=== PATIENT | female | born 1960 | race Caucasian/White ===

== ENCOUNTER → 2020-11-19 13:10 | Outpatient (CLI) | payer OTHER, SELFPAY ==
--- NOTE | ~2020-11-19 | MM_ITS ---
EXAMINATION: MM screening rj BI w juan carlos HISTORY: Screening mammogram TECHNIQUE: Craniocaudal and mediolateral oblique 3-D tomosynthesis images were obtained and synthetic 2-D images were generated. CAD analysis was submitted and interpreted. COMPARISON: 11/18/2019, 11/14/2018, 11/13/2017, 11/08/2016, 08/07/2006 bilateral digital screening mammog roz examinations BREAST PARENCHYMAL COMPOSITION: There are scattered areas of fibroglandular density. FINDINGS: 8 mm circumscribed low-density opacity in the lower outer right breast is stable or diminis hed in size since 08/07/2006, consistent with chronic benign process. There is no evidence of suspici ous mass, calcification, or architectural distortion to suggest malignancy in either breast. There greenwood s been no suspicious interval change. IMPRESSION: 1. No mammographic evidence of malignancy. 2. Recommend routine screening mammography in one year. BI-RADS Category 2: Benign finding(s). Reviewed, dictated and finalized at location A. STICS CLERK
--- NOTE | ~2020-11-19 | DEXA_ITS ---
Bone Density Report Name: Kemi Bravo Age: 60 Sex: Female Ethnicity: White Date of : 1960 Indication: osteopenia; monitoring treatment; height loss; postmenopausal Referring Provider: KAMINI GUO Study: Bone densitometry was performed. Exam Date: November 19, 2020 Accession number: [id number] Bone Density: Region BMD T-score Z-score Classification AP Spine (L1-L4) 0.895 -1.4 0.1 Osteopenia Femoral Neck (Left) 0.771 -0.7 0.6 Normal Total Hip (Left) 0.987 0.4 1.4 Normal Femoral Neck (Right) 0.822 -0.2 1.1 Normal Total Hip (Right) 0.955 0.1 1.1 Normal Total Hip Mean 0.971 0.3 1.3 Normal World Health Organization criteria for BMD impression classify patients as: Normal (T-score at or above -1.0), Osteopenia (T-score between -1.0 and -2.5), or Osteoporosis (T-score at or below -2.5). 10-year Fracture Risk: FRAX not reported because: Treated for osteoporosis Previous Exams: Region Exam Age BMD T-score BMD Change BMD Change Date g/cm2 vs Baseline vs Previous AP Spine(L1-L4) 11/19/2020 60 0.895 -1.4 0.009 -0.002 11/14/2018 58 0.898 -1.4 0.011 0.026* 11/08/2016 56 0.871 -1.6 -0.015 -0.046* 08/28/2014 53 0.917 -1.2 0.031* 0.005 08/23/2011 50 0.912 -1.2 0.026* 0.026* 08/20/2009 48 0.886 -1.5 Total Hip(Left) 11/19/2020 60 0.987 0.4 0.030* 0.034* 11/14/2018 58 0.953 0.1 -0.004 0.000 11/08/2016 56 0.953 0.1 -0.004 -0.022 08/28/2014 53 0.975 0.3 0.018 0.054* 08/23/2011 50 0.921 -0.2 -0.036* -0.036* 08/20/2009 48 0.957 0.1 Total Hip(Right) 11/19/2020 60 0.955 0.1 0.045* 0.030* 11/14/2018 58 0.925 -0.1 0.015 0.006 11/08/2016 56 0.919 -0.2 0.009 -0.010 08/28/2014 53 0.929 -0.1 0.019 0.017 08/23/2011 50 0.912 -0.2 0.002 0.002 08/20/2009 48 0.910 -0.3 *Denotes significance at 95% confidence level, LSC for AP Spine = 0.022 g/cm2, LSC for Total Hip = 0.027 g/cm2 Clinical Information Provided by Patient: Is being treated for osteoporosis Has used the following medications: Actonel (i.e. risedronate), Vitamin D Patient maximum height was 66.0 Menopause Age: 48 Onset of menses at age 13 Number of children 0
== END ==
PROVIDERS: Visit Provider Obstetrics & Gynecology Gynecology
DX: Z12.31 Encounter for screening mammogram for malignant neoplasm of breast (principal); Z78.0 Asymptomatic menopausal state; M85.88 Other specified disorders of bone density and structure, other site
CPT/HCPCS: 77063; 77067; 77080

== ENCOUNTER → 2021-11-29 07:07 | Outpatient (CLI) | payer OTHER, SELFPAY ==
--- NOTE | ~2021-11-29 | MM_ITS ---
EXAMINATION: MM screening rj BI w juan carlos HISTORY: Screening TECHNIQUE: Craniocaudal and mediolateral oblique 3-D tomosynthesis images were obtained and synthetic 2-D images were generated. CAD analysis was submitted and interpreted. COMPARISON: Comparison to multiple prior studies sequentially, with oldest reviewed study dated 02/2015. BREAST PARENCHYMAL COMPOSITION: There are scattered areas of fibroglandular density. FINDINGS: There is developing architectural distortion superiorly in the right breast on MLO view, no t appreciated on CC view. There is a stable benign-appearing mass in the lower outer quadrant of the right breast. The left breast is stable without evidence for malignancy. IMPRESSION: 1. New architectural distortion superiorly in the right breast on MLO view. 2. Additional mammographic views and possible breast ultrasound are recommended. BI-RADS Category 0: Incomplete: Needs additional imaging evaluation. Reviewed, dictated and finalized at location A. NG CLOSER IMPRESSION: 1. New architectural distortion superiorly in the right breast on MLO view. 2. Additional mammographic views and possible breast ultrasound are recommended . BI-RADS Category 0: Incomplete: Needs additional imaging evaluation.
== END ==
PROVIDERS: Visit Provider Obstetrics & Gynecology Gynecology
DX: Z12.31 Encounter for screening mammogram for malignant neoplasm of breast (principal); R92.8 Other abnormal and inconclusive findings on diagnostic imaging of breast
CPT/HCPCS: 77063; 77067

== ENCOUNTER → 2021-12-15 07:58 | Outpatient (CLI) | payer OTHER, SELFPAY ==
--- NOTE | ~2021-12-15 | MMUS_ITS ---
EXAMINATION: MM diagnostic rj RT w juan carlos, US breast RT limited HISTORY: Follow-up possible architectural distortion of the right breast. TECHNIQUE: Additional 3-D tomosynthesis images of the right breast were performed and synthetic 2-D i mages were generated. CAD analysis was submitted and interpreted. High resolution Limited right breas t ultrasound was performed. COMPARISON: Comparison to multiple prior studies sequentially, with oldest reviewed study dated 11/08. BREAST PARENCHYMAL COMPOSITION: Breast composed of scattered areas of fibroglandular density. FINDINGS: MAMMOGRAPHIC FINDINGS: There is a stable benign-appearing mass in the lower outer quadrant of the right breast anteriorly. F ocal asymmetry in the upper aspect of the right breast is less apparent with spot compression views, compatible with superimposed fibroglandular content. No suspicious architectural distortion. ULTRASOUND: Limited right breast ultrasound: At 8-9:00, 3.5 cm from the nipple there is an oval circumscribed hyp oechoic mass measuring 9 mm corresponding to the stable benign mass seen on mammography. IMPRESSION: 1. No evidence for malignancy in the right breast. Benign findings. 2. Routine yearly screening mammogram and regular clinical breast examination are recommended. BI-RADS Category 2: Benign finding(s). Reviewed, dictated and finalized at location A. YTICS DEVELOPER IMPRESSION: 1. No evidence for malignancy in the right breast. Benign findings. 2. Routine yearly screening mammogram and regular clinical breast examination a re recommended. BI-RADS Category 2: Benign finding(s).
== END ==
PROVIDERS: Visit Provider Obstetrics & Gynecology Gynecology
DX: N63.15 Unspecified lump in the right breast, overlapping quadrants (principal)
CPT/HCPCS: 76642; 77061; 77065; G0279

== ENCOUNTER → 2022-12-01 12:09 | Outpatient (CLI) | payer OTHER, SELFPAY ==
--- NOTE | ~2022-12-01 | DEXA_ITS ---
Bone Density Report Name: SALLIE CHRISTINE Age: 62 Sex: Female Ethnicity: White Date of : 1960 Indication: osteopenia; height loss; prior fracture; postmenopausal Referring Provider: KAMINI GUO Study: Bone densitometry was performed. Exam Date: December 01, 2022 Accession number: [id number] Bone Density: Region BMD T-score Z-score Classification AP Spine (L1-L4) 0.886 -1.5 0.2 Osteopenia Femoral Neck (Left) 0.757 -0.8 0.6 Normal Total Hip (Left) 0.973 0.3 1.4 Normal Femoral Neck (Right) 0.778 -0.6 0.8 Normal Total Hip (Right) 0.938 0.0 1.1 Normal Total Hip Mean 0.956 0.2 1.3 Normal World Health Organization criteria for BMD impression classify patients as: Normal (T-score at or above -1.0), Osteopenia (T-score between -1.0 and -2.5), or Osteoporosis (T-score at or below -2.5). 10-year Fracture Risk(1): Major Osteoporotic Fracture 13% Hip Fracture 0.7% Reported Risk Factors: [place] (), Neck BMD=0.757, BMI=26.2, previous fracture (1) FRAX(R) Version 3.08. Fracture probability calculated for an untreated patient. Fracture probability may be lower if the patient has received treatment. Previous Exams: Region Exam Age BMD T-score BMD Change BMD Change Date g/cm2 vs Baseline vs Previous AP Spine(L1-L4) 12/01/2022 62 0.886 -1.5 0.000 -0.009 11/19/2020 60 0.895 -1.4 0.009 -0.002 11/14/2018 58 0.898 -1.4 0.011 0.026* 11/08/2016 56 0.871 -1.6 -0.015 -0.046* 08/28/2014 53 0.917 -1.2 0.031* 0.005 08/23/2011 50 0.912 -1.2 0.026* 0.026* 08/20/2009 48 0.886 -1.5 Total Hip(Left) 12/01/2022 62 0.973 0.3 0.016 -0.014 11/19/2020 60 0.987 0.4 0.030* 0.034* 11/14/2018 58 0.953 0.1 -0.004 0.000 11/08/2016 56 0.953 0.1 -0.004 -0.022 08/28/2014 53 0.975 0.3 0.018 0.054* 08/23/2011 50 0.921 -0.2 -0.036* -0.036* 08/20/2009 48 0.957 0.1 Total Hip(Right) 12/01/2022 62 0.938 0.0 0.028* -0.017 11/19/2020 60 0.955 0.1 0.045* 0.030* 11/14/2018 58 0.925 -0.1 0.015 0.006 11/08/2016 56 0.919 -0.2 0.009 -0.010 08/28/2014 53 0.929 -0.1 0.019 0.017 08/23/2011 50 0.912 -0.2 0.002 0.002 08/20/2009 48 0.910 -0.3 *Denotes si
--- NOTE | ~2022-12-01 | MM_ITS ---
EXAMINATION: MM screening [facility] BI w juan carlos HISTORY: Screening TECHNIQUE: Craniocaudal and mediolateral oblique 3-D tomosynthesis images were obtained and synthetic 2-D images were generated. CAD analysis was submitted and interpreted. COMPARISON: Comparison to multiple prior studies sequentially, with oldest reviewed study dated 11/13. BREAST PARENCHYMAL COMPOSITION: There are scattered areas of fibroglandular density. FINDINGS: Mass in the lower outer quadrant of the right breast is stable compared with prior studies. There is no evidence of suspicious mass, calcification, or architectural distortion to suggest malig luis m in either breast. There has been no suspicious interval change. IMPRESSION: 1. No mammographic evidence of malignancy. 2. Recommend routine screening mammography in one year. BI-RADS Category 2: Benign finding(s). Reviewed, dictated and finalized at location A. [employer] [facility] OPERATOR
== END ==
PROVIDERS: PCP Internal Medicine; Visit Provider Obstetrics & Gynecology Gynecology
DX: Z12.31 Encounter for screening mammogram for malignant neoplasm of breast (principal); Z78.0 Asymptomatic menopausal state; M85.88 Other specified disorders of bone density and structure, other site
CPT/HCPCS: 77063; 77067; 77080

== ENCOUNTER 2023-10-25 00:44 | Day surgery (SDC) | payer OTHER, SELFPAY ==
[2023-10-03 14:02] VITALS: BMI 25.0
--- NOTE | 2023-10-23 11:56 | SUR.PREOP ---
Patient called regarding upcoming procedure. Reviewed preop instructions, appointment times, and procedure prep.
--- NOTE | 2023-10-24 18:02 | PM.HPGS ---
History of Present Illness History of Present Illness Consent: Risks, benefits, and alternatives have been discussed and questions answered. Patient agrees to proceed with procedure. 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 Her mother had Rectal cancer. Review of Systems Review of Systems: All systems reviewed & are unremarkable except as noted in HPI and below PMFSH Social History Social History Smoking status: Never smoker Alcohol intake: current Alcohol use details: 1 drink monthly Substance use type: does not use Living arrangements: with family Spiritual care concerns: No Meds Home Medications and Allergies Home Medications Medication Instructions Recorded Confirmed Type ergocalciferol (vitamin D2) 1,250 1,250 mcg PO WEEKLY 10/03/23 10/25/23 History mcg (50,000 unit) capsule fexofenadine 180 mg tablet 180 mg PO DAILY 10/03/23 10/25/23 History fluticasone propionate 50 2 spray intranasal DAILY 10/03/23 10/25/23 History mcg/actuation nasal spray,suspension pravastatin 40 mg tablet 40 mg PO DAILY 10/03/23 10/25/23 History Allergies Allergy/AdvReac Type Severity Reaction Status Date / Time bee venom protein (honey bee) Allergy Rash Verified 10/25/23 06:24 hydrocodone Allergy Swelling Verified 10/25/23 06:24 Exam Resp: Auscultation: clear to auscultation bilaterally Cardio: Rate: regular rate Rhythm: regular rhythm GI: GI Palp: Yes Soft to palpation and No Tenderness to palpation present (GI) Assessment and Plan Assessment and plan (1) Colon cancer screening: Code(s): Z12.11 - Encounter for screening for malignant neoplasm of colon Status: Acute Assessment and Plan: Colonoscopy with possible biopsy or polypectomy or cautery or injection of substances.
[2023-10-25 06:25] VITALS: BP 154/82; PULSE 60; RESP 18; TEMP 36.1; O2SAT 99; BMI 27.3
[2023-10-25] MEDS: LACTATED RINGERS 1,000 ML 150 ML IV CONT (06:37)
--- NOTE | 2023-10-25 07:24 | P.PNAN_ITS ---
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 Patient Data Age: 63 Gender: F Height: 1.63 m Weight: 72.1 kg Last Vital Signs Temp 97.0 F L 10/25/23 06:25 Pulse 60 10/25/23 06:25 Resp 18 10/25/23 06:25 BP 154/82 H 10/25/23 06:25 Pulse Ox 99 10/25/23 06:25 O2 Del Method Room Air 10/25/23 06:25 Allergies Allergy/AdvReac Type Severity Reaction Status Date / Time bee venom protein (honey bee) Allergy Rash Verified 10/25/23 06:24 hydrocodone Allergy Swelling Verified 10/25/23 06:24 Home Medications Medication Instructions Recorded Confirmed Type ergocalciferol (vitamin D2) 1,250 1,250 mcg PO WEEKLY 10/03/23 10/25/23 History mcg (50,000 unit) capsule fexofenadine 180 mg tablet 180 mg PO DAILY 10/03/23 10/25/23 History fluticasone propionate 50 2 spray intranasal DAILY 10/03/23 10/25/23 History mcg/actuation nasal spray,suspension pravastatin 40 mg tablet 40 mg PO DAILY 10/03/23 10/25/23 History Patient hx anesthesia problems: none Family hx anesthesia problems: none Results Review: All pre-operative results and documents have been reviewed as part of the pre- operative evaluation. [facility] Social History Social History Smoking status: Never smoker Alcohol intake: current Alcohol use details: 1 drink monthly Substance use type: does not use Living arrangements: with family Spiritual care concerns: No Anes - Eval Final PreProcedure Day of Procedure 10/25/23 07:24 Patient weight: normal Heart: regular rate and rhythm Lungs: clear to auscultation Airway: Mallampati scale class II Neurological: alert and oriented Last oral intake: >/= 8 hours ASA classification: II Emergent: no Anesthetic plan: proceed Anesthesia type and monitoring: general GIVS and standard monitoring Results Review: All pre-operative results and documents have been reviewed as part of the pre- operative evaluation. Informed Consent: The patient's anesthetic plan and its attendant risks and benefits were discussed with the patient/family/POA. Questions were solicited and answers provided to the satisfaction of the patient/family/POA.
[2023-10-25 07:47] VITALS: BP 110/69; PULSE 66; RESP 20; O2SAT 94
[2023-10-25 07:57] VITALS: BP 111/69; PULSE 68; RESP 18; O2SAT 95
[2023-10-25 08:07] VITALS: BP 130/80; PULSE 60; RESP 18; O2SAT 98
== END 2023-10-25 08:09 | disposition home or self-care (01) ==
PROVIDERS: PCP Internal Medicine; Visit Provider Internal Medicine Gastroenterology
PROC: 0DJD8ZZ Inspection of Lower Intestinal Tract, Via Natural or Artificial Opening Endoscopic (ICD-10-PCS; CPT 45378; principal; 2023-10-25 07:30)
DX: Z12.11 Encounter for screening for malignant neoplasm of colon (principal); Z80.0 Family history of malignant neoplasm of digestive organs
CPT/HCPCS: 45378; J2704; J7120

== ENCOUNTER 2024-01-09 12:00 | Outpatient (CLI) | payer OTHER, SELFPAY ==
--- NOTE | ~2024-01-09 | MM_ITS ---
EXAMINATION: MM screening rj BI w juan carlos HISTORY: Screening mammogram TECHNIQUE: Craniocaudal and mediolateral oblique 3-D tomosynthesis images were obtained and synthetic 2-D images were generated. CAD analysis was submitted and interpreted. COMPARISON: December 01, 2022 bilateral screening mammogram December 15, 2021 diagnostic right mammogram and limited right breast ultrasound November 29, 2021, Ja nuary 2020 bilateral screening mammogram examinations BREAST PARENCHYMAL COMPOSITION: There are scattered areas of fibroglandular density. FINDINGS: Stable circumscribed approximately 7.7 mm mass is noted in the mid to lower outer right satya ast anteriorly, not completely change. There is no evidence of suspicious mass, calcification, or arc hitectural distortion to suggest malignancy in either breast. There has been no suspicious interval c hange. IMPRESSION: 1. Stable benign right breast mass. No mammographic evidence of malignancy. 2. Recommend routine screening mammography in one year. BI-RADS Category 2: Benign finding(s). Reviewed, dictated and finalized at location A.
== END 2024-01-09 12:01 ==
LOC: MICIMG 12:00
PROVIDERS: PCP Obstetrics & Gynecology Gynecology; Visit Provider Obstetrics & Gynecology Gynecology
DX: Z12.31 Encounter for screening mammogram for malignant neoplasm of breast (principal)
CPT/HCPCS: 77063; 77067

== ENCOUNTER 2025-01-07 12:10 | Outpatient (CLI) | payer MEDICARE, SELFPAY ==
--- NOTE | ~2025-01-07 | DEXA_ITS ---
Bone Density Report Name: SALLIE CHRISTINE Age: 64 Sex: Female Ethnicity: White Date of : 1960 Indication: postmenopausal; screening for osteoporosis; height loss; Referring Provider: KAMINI GUO Study: Bone densitometry was performed. Exam Date: January 07, 2025 Accession number: [id number] Bone Density: Region BMD T-score Z-score Classification AP Spine(L1-L4) 0.858 -1.7 0.1 Osteopenia Femoral Neck (Left) 0.693 -1.4 0.1 Osteopenia Total Hip (Left) 0.913 -0.2 1.0 Normal Femoral Neck (Right) 0.782 -0.6 0.9 Normal Total Hip (Right) 0.902 -0.3 0.9 Normal Total Hip Mean 0.908 -0.3 1.0 Normal World Health Organization criteria for BMD impression classify patients as: Normal (T-score at or above -1.0), Osteopenia (T-score between -1.0 and -2.5), or Osteoporosis (T-score at or below -2.5). 10-year Fracture Risk(1): Major Osteoporotic Fracture 8.6% Hip Fracture 0.9% Reported Risk Factors: [place] (), Neck BMD=0.693, BMI=27.6 (1) FRAX(R) Version 3.08. Fracture probability calculated for an untreated patient. Fracture probability may be lower if the patient has received treatment. Clinical Information Provided by Patient: Patient maximum height was 66.0 Menopause Age: 49 No regular weight bearing exercise Onset of menses at age 13 Number of children 0 Impression: The patient has low bone mass, based on the Total Spine T-score. The patient has an estimated ten-year risk of hip fracture of 0.9% and an estimated ten-year risk of major fracture of 8.6%, based on the WHO FRAX algorithm. Discussion: BONE DENSITY IS LOW AT ONE OR MORE SKELETAL SITES. This patient's lowest T-score is low at one or more skeletal sites. It meets the World Health Organization's (WHO) criteria for ?low bone mass? (T-score between -1.0 and -2.5). The patient's 10-year risk of fracture as calculated by FRAX is less than the threshold where pharmacological therapy is recommended by the National Osteoporosis Foundation (NOF). However, all treatment decisions require clinical judgment and consideration of individual patient factors, including patient preferences, comorbidities, previous drug use, risk factors not captured in the FRAX model (e.g., frailty, falls, vitamin D deficiency, increased bone turnover, interval significant decline in bone density) and possible under or overestimation of fracture risk by FRAX. The patient should follow a healthful lifestyle (good nutrition with adequate calcium and vitamin D, and appropriate weight-bearing exercise). Follow-Up: Consider repeating this study in 2 to 3 years to reassess this patient's status, or sooner if there is some new clinical indication. Reported by: GINO on 01/07/2025 12:49:00 PM. Reviewed, dictated and finalized at location [facility]BA
--- OUTSIDE RECORDS SUMMARY | 2025-01-07 13:41 | XMS_ITS | Clinical Summary ---
Author Organization [facility] Address [address] [place] [id number] Care Team Providers Care Student Life Dean Name Role Phone Doc Wilde MD Primary Care Provider Allergies No known active allergies Medications hydrocortisone 2.5 % ointment Apply to affected area on chest BID as needed. 28.35 g 1 11/12/2020 Active pravastatin (PRAVACHOL) 10 mg tablet Take 40 mg by mouth nightly Active cholecalciferol (VITAMIN D-3) 50,000 unit capsule Take 50,000 Units by mouth once a week Active fexofenadine (PJ) 180 mg tablet Take 180 mg by mouth daily Active acetaminophen (TYLENOL) 325 mg tablet Take 650 mg by mouth every 6 (six) hours as needed for pain Active ibuprofen (ADVIL,MOTRIN) 400 mg tablet Take 200 mg by mouth every 6 (six) hours as needed for pain Active HYDROcodone-abby taminophen (NORCO) 5-325 mg per tabletIndicatio ns:Pain Take 1-2 tablets by mouth every 6 (six) hours as needed for pain 50 tablet 02/16/2022 Active fluticasone propionate (FLONASE) 50 mcg/actuation nasal spray 03/04/2022 Active Active Problems Problem Noted Date Diagnosed Date Right wrist pain 02/08/2022 Fracture, Colles, right, closed 02/08/2022 Surgical History Surgery Date Site/Laterality Comments CYST REMOVAL Right hand MOLE REMOVAL ORIF WRIST FRACTURE 02/16/2021 Right RT. WRIST ORIF Medical History Medical History Date Comments Motion sickness Fracture 01/2022 left ankle--wear ing air cast currently Family History Medical History Relation Name Comments Diabetes Mother Heart disease Mother Stroke Mother Relation Name Status Comments Mother Social History Tobacco Use Types Packs/Day Years Used Date Smoking Tobacco: Never Smokeless Tobacco: Never AUDIT-C Answer Date Recorded Q1: How often do you have a drink containing alc ohol? Monthly or less 02/16/2022 Q2: How many drinks containi ng alcohol do you have on a typical day when you are drinking? 1 or 2 02/16/2022 Q3: How often do you have si x or more drinks on one occasion? 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 Gender Identity Not on file Sexual Orientation Not on file Obstetrics History Last Filed Vital Signs Vital Sign Reading Time Taken Comments Blood Pressure 154/76 02/16/2022 1:35 PM CDT Pulse 65 02/16/2022 1:35 PM CDT Temperature 36.2 C (97.1 F) 02/16/2022 1:20 PM CDT Respiratory Rate 16 02/16/2022 1:35 PM CDT Oxygen Saturation 96% 02/16/2022 1:35 PM CDT Inhaled Oxygen Concentration - - Weight 74.1 kg (163 lb 6 oz) 02/16/2022 8:47 AM CDT Height 165.1 cm (5' 5 ) 02/16/2022 8:47 AM CDT Body Mass Index 27.19 02/16/2022 8:47 AM CDT Plan of Treatment Health Maintenance Due Date Last Done Comments Breast Cancer Screening-Mammogram 1960 Cervical Cancer Screening 1960 Colon Cancer Screening-Colonoscopy 1960 Depression Screening 1960 Hepatitis C Screening 1960 Osteoporosis Screening-Bone Density Scan 1960 DTaP/Tdap/Td Vaccine (1 - Tdap) 1970 Pneumococcal vaccine 65+ (1 of 1 - PCV) 2009 Zoster Vaccine (2 of 2) 12/29/2020 11/03/2020 Fall Risk Assessment 02/16/2023 02/16/2022 Influenza Vaccine (#1) 2024 Well Visit 65+ 2024 Hepatitis B Screening Completed 02/10/1994 , 07/20/1993, 06/20/1993 Medical Devices Implanted Type Area Brusher Warp Device Identifier Shelf Expiration Date Model / Serial / Lot [employer] 3 Hole Anatomic Graft Window Radius Right Wrist Volar Narrow [id number] - [id number] Implanted:Qty: 1 on 02/16/2022 by Mohamud Tapia MD at [facility] Right: Wrist [employer] [id number]- [id number] / / [employer] [id number] Screw Kreulock Compression Titanium 2.4x18mm - [id number] Implanted:Qty: 2 on 02/16/2022 by Mohamud Tapia MD at [facility] Right: Wrist [employer] AR-[id number]- 18 / / [employer] [id number] Screw Kreulock Compression Titanium 2.4x16mm - [id number] Implanted:Qty: 1 on 02/16/2022 by Mohamud Tapia MD at [facility] Right: Wrist [employer] AR-[id number]- 16 / / [employer] [id number] Screw Kreulock Compression Titanium 3.5x14mm - [id number] Implanted:Qty: 1 on 02/16/2022 by Mohamud Tapia MD at [facility] Right: Wrist [employer] AR-8935CL-1 4 / / [employer] Screw Kreulock Compression Titanium 3.5x14mm [id number] - [id number] Implanted:Qty: 1 on 02/16/2022 at [facility] Right: Wrist [employer] AR-8935CL-1 0 / / [employer] Low Profile Screws 3.5mm 14mm Self Drill Solid Midfoot Cortical T Ar-8935-14 - [id number] Implanted:Qty: 1 on 02/16/2022 by Mohamud Tapia MD at [facility] Right: Wrist [employer] AR-8935-14 / / Explanted Type Area Brusher Warp Device Identifier Shelf Expiration Date Model / Serial / Lot [employer] [id number] Screw Kreulock Compression Titanium 3.5x16mm - [id number] Explanted:Qty: 1 on 02/16/2022 at [facility] Right: Wrist [employer] AR-8935CL-1 6 / / [employer] Screw Kreulock Compression Titanium 3.5x14mm [id number] - [id number] Explanted:Qty: 1 on 02/16/2022 at [facility] Right: Wrist [employer] AR-8935CL-1 0 / / [employer] Low Profile Screws 3.5mm 12mm Self Drill Solid Midfoot Cortical T Ar-8935-12 - [id number] Explanted:Qty: 1 on 02/16/2022 at [facility] Right: Wrist [employer] AR-8935-12 / / Insurance Power [place] [facility] [employer] HMO/POS [employer] COVENTRY HMO/POS Care Teams Student Life Dean Relationship Specialty Start Date End Date Doc Wilde MD [address] [facility] [address] [place] [address] PCP - General Internal Medicine 02/16/22
--- OUTSIDE RECORDS SUMMARY | 2025-01-07 13:41 | XMS_ITS | Data Portability ---
Author Organization [facility], Main Office Address [address] [place] [address] Assessment No assessment recorded. Plan of Treatment Reminders Order Date Submit Date Provider Last Modified By Organization Details Last Modified Time Details Appointments None recorded. Lab vitamin D, 25-hydroxy, total, serum 2022 023 [id number] [facility], [address], [place], [address], 3 18:08:13 CMP, serum or plasma 2022 023 [id number] [facility], [address], [place], [address], 3 18:08:12 lipid panel, serum 2022 023 [id number] [facility], [address], [place], [address], 3 18:08:13 CBC w/ auto diff 2022 023 [id number] [facility], [address], [place], [address], 3 18:08:13 T4, free, serum 2022 023 [id number] [facility], [address], [place], [address], 3 18:08:13 TSH, serum or plasma 2022 023 [id number] [facility], [address], [place], [address], 3 18:08:13 Referral None recorded. Procedures None recorded. Surgeries None recorded. Imaging None recorded. Medication Orders benzonatate 200 mg capsule 2023 024 DORCAS [id number], [address] [place], [address], 4 10:19:07 Patient TargetsNo targets recorded. Patient Instructions Encounter Date Encounter Id Patient Instructions Last Modified By Organization Details Last Modified Time 07/20/2023 [id number] risk assessment* [email or web address] Not availabl e 07/20/2023 12:01:37 INFLUENZA VACCIN E TD/TDAP Recommended today, patient declined Ordered Pa tient will get at local pharmacy/health department PNEUMONIA VACCINE Ordered Recommended today, patient declined Patient will get at local pharmacy/health department Recommen ded at age 64 SHINGLES Ordered Recommended today, patient declined Patient will get at local pharmacy/health department MAMMOGRAM: Last Mammogram No screening necessary patient is up to date DEXA SCAN No screening necessary patient is up to date CERVICAL SCREENING/PELVIC EXAMINATION Recommended today, but patient declined Ordered No screening necessary patient is up to date COLORECTAL SCREENING: Last Colonoscopy DEPRESSION SCREENING Negative BMI Overweight Appropri ate NUTRITION Heart Healthy Diet PHYSICAL ACTIVITY Appropriate physical activity VISION ALCOHOL USE No alcohol use TOBACCO USE non smoker LUNG CANCER SCREENING Non Smoker-not indicated SEXUALLY ACTIVE HEPATITIS C SCREENING Not indicated GLUCOSE SCREENING LIPID SCREENING [email or web address] Not available 07/20/2023 11:48:45 Adult health examination and risk assessment stable. History of borderline hyperlipidemia and vitamin-D deficiency. Overall is doing well. Will continue on current Rx and follow-up in six months. Check blood work consisting of CBC, CMP, lipid, thyroid and vitamin-D level. Has had some episodes of lightheadedness and doing weight loss in the extreme exertion. May need to consider a 5 hour glucose tolerance test with insulin levels to see if there is any evidence of reactive hypoglycemia. Will continue with current Rx and follow-up in six months Portions of the record may have been created with voice recognition software. Occasional wrong-word or ajyqa-a-upkh substitutions may have occurred due to the inherent limitations of voice recognition software. Read the chart carefully and recognize, using context, where substitutions have occurred. [email or web address] Not available 07/20/2023 12:01:17 05/19/2024 [id number] Persistent cough and congestion. Will cover with again some benzoate 200 mg t.i.d. For the cough. Will add some Airsupra two puffs q.i.d. As needed to see if this may help cough. Will also obtain a chest x-ray. If no improvement will need pulmonary functions and Pulmonary consult. Additional Orders and/or Directives: 1. Chest x-ray four persistent cough 2. Get a copy of most recent mammogram done up in [place]. Next Appointment: 4 Months Approximate Date: 09/16/2024 Portions of the record may have been created with voice recognition software. Occasional wrong-word or fihhv-r-qlwb substitutions may have occurred due to the inherent limitations of voice recognition software. Read the chart carefully and recognize, using context, where substitutions have occurred. [email or web address] Not available 05/19/2024 10:19:46 Reason for Referral None Reported. Results Created Date Observation Date Name Description Value Unit Range Abnormal Flag Note LastModifiedBy Organization Detail LastModifiedTime 12/01/19 23 12/01/2022 DEXA, axial skele ton No observ ation record ed. [id number] [facility] [address], [place], [address], 12/27/2022 16:56:51 12/01/19 23 12/01/2022 MAMMO , scree janet, digit al, bilat eral No observ ation record ed. [id number] [facility] [address], [place], [address], 12/27/2022 16:56:51 05/19/20 24 XR, chest , 2 view [facility] [address], [place] [address] Patien t Name: SALLIE CHRISTINE ion #: [id number] Sex: F : 1959 4 Dictat ed By: Carolann Lerma Attend ing Physic rosibel: JAEL WILDE CE Orderi ng Physic rosibel: JAEL WILDE CE Exam Date: 2023 10:20 AM Exam Name: XR CHEST 2V Admitt ing Diagno sis(es ): EXAM: XR CHEST 2V CLINIC AL HISTOR Y: cough COMPAR MEHDI: None TECHNI QUE: Fronta l and latera l view of the chest was obtain ed FINDIN GS: Lines and Tubes: None Lungs: No focal consol idatio n. Pleura : No effusi on. No pneumo thorax . Cardio medias tinal contou rs: Unrema rkable Bones: No acute osseou s abnorm ality. IMPRES JERI: No acute cardio pulmon faye diseas e. Electr onical ly Signed by: Carolann Lerma at 2023 10:52: 30 AM Page 1 [facility] (Imaging) [address] [place], [address], 05/19/2024 14:02:47 Result Notes None recorded. Problems Name Problem SNOMED Code Status Onset Date Resolution Date Notes Provider Name and Address Organization Details Recorded Time Hypercholester olemia 27965177 Active 2017 Not Available [facility] 3 16:56:09 Acute sinusitis 73666220 Active 2021 Not Available [facility] 3 16:56:09 Vitamin D deficiency 83206393 Active Not Available [facility] 3 16:56:09 Pruritic rash 71818330 Active 2023 Christine Rea CMA null, [facility] 4 10:22:05 Cough 73756100 Active 2023 BULMARO [place], [facility] 4 14:12:50 Problem Notes None recorded. Procedures Surgical History None recorded. Imaging Results Imaging Date Name Status LastModified by [facility] Details LastModified Time 12/01/2022 DEXA, axial skeleton completed [id number] [facility] [address], [place], [address], 12/27/2022 16:56:51 12/01/2022 MAMMO, screening, digital, bilateral completed [id number] [facility] [address], [place], [address], 12/27/2022 16:56:51 05/19/2024 XR, chest, 2 view completed [email or web address] [facility] (Imaging) [address] [facility], [place], [address], 05/19/2024 14:02:47 Procedure Notes None recorded. Medical Equipment None Reported. Allergies Allergen ID Allergen Name Allergen Category Reaction Reaction Severity Criticality Documentation Date Start Date Code Code System Note Provider Name and Address Organization Details Recorded Time 73220 honey bee venom environme nt hives Not available Not available 12/27/2022 96109 7 RxNorm Not Available [facility] 16:56:50 Medications Name Sig Start Date Stop Date Status Note LastModified by Organization Details LastModified Time pravastatin 40 mg tablet TAKE 1 TABLET DAILY 2023 active Not Available Not Available Not Avai lable benzonatate 200 mg capsule TAKE 1 CAPSULE BY MOUTH THREE TIMES A DAY active Not Available Not Available No t Available valacyclovi r 1 gram tablet TAKE 2 TABLETS BY MOUTH EVERY 12 HOURS FOR 1 DAY active Not Available Not Available No t Available hydrocodone 5 mg-acetamin ophen 325 mg tablet TAKE 1 TO 2 TABLETS BY MOUTH EVERY 6 HOURS NEEDED FOR PAIN active Not Available Not Available No t Available Zithromax Z-Colin 250 mg tablet Take 2 TABLET EVERY DAY by oral route for 1 day then one daily 11/16 completed Not Available Not Available Not Available promethazin e 6.25 mg-codeine 10 mg/5 mL syrup Take 5 ML EVERY 6 HOURS by oral route PRN for cough 11/16 completed Not Available Not Available Not Available acyclovir 400 mg tablet TAKE 5 TABLETS TWICE A DAY BY MOUTH active Not Available Not Available No t Available acyclovir 5 % topical ointment APPLY TO THE AFFECTED AREA(S) BY TOPICAL ROUTE EVERY 3 HOURS 6 TIMES PER DAY active Not Available Not Available No t Available clotrimazol e-betametha sone 1 %-0.05 % topical cream APPLY BY TOPICAL ROUTE TWICE DAILY active Not Available Not Available No t Available ergocalcife rol (vitamin D2) 1,250 mcg (50,000 unit) capsule Take 1 capsule every week by oral route. active Not Available Not Available No t Available Transderm-S copy and print associate 1 mg over 3 days transdermal patch Apply by transderm al route q 72 hours 12/07 completed Not Available Not Available Not Available estradiol 0.01% (0.1 mg/gram) vaginal cream 07/20 completed Not Available Not Available Not Available methylpredn isolone 4 mg tablets in a dose pack Take by oral route as directed 11/16 completed Not Available Not Available Not Available fluticasone propionate 50 mcg/actuati on nasal spray,suspe nsion 2 puffs daily each nostril as needed active Not Available Not Available No t Available amoxicillin 875 mg-potassiu m clavulanate 125 mg tablet TAKE 1 TABLET BY MOUTH EVERY 12 HOURS active Not Available Not Available No t Available Lodine 400 mg tablet Take 1 tablet twice a day by oral route. active Not Available Not Available No t Available neomycin 1.75 mg-polymyxi n 10,000 unit-gramic idin 0.025mg/mL eye drops one or two drops Q 4hours while awake 12/07 completed Not Available Not Available Not Available Actonel 150 mg tablet Take 1 tablet every month by oral route. 2017 active Not Available Not Available Not Avai lable benzonatate 150 mg capsule Take 1 capsule 3 times a day by oral route. 04/17 completed Not Available Not Available Not Available Probiotic (B. coagulans) 10 billion cell capsule,del ayed release three times a week 2017 active Not Available Not Available Not Avai lable Vitals Date Recorded Oxygen saturation Oxygen saturation in Arterial blood by Pulse oximetry Heart rate Respiratory rate Body temperature Body weight Systolic blood pressure Diastolic blood pressure Provider Name and Address Organization Details Last Updated DateTime 2 99 % 99 % 56 /min 12 /min 97.6 [degF] 32311.1 5 g 122 mm[Hg] 70 mm[Hg] Not Available [facility] 3 16:55:49 Date Recorded Body height Body mass index (BMI) Body weight Heart rate Body temperature Oxygen saturation Oxygen saturation in Arterial blood by Pulse oximetry Systolic blood pressure Diastolic blood pressure Provider Name and Address Organization Details Last Updated DateTime 3 165.1 cm 25.6 kg/m2 88510.2 2 g 64 /min 97 [degF] 99 % 99 % 122 mm[Hg] 80 mm[Hg] Ninfa Ramon [facility] 3 11:42:52 Date Recorded Body height Body mass index (BMI) Body weight Heart rate Body temperature Oxygen saturation Oxygen saturation in Arterial blood by Pulse oximetry Systolic blood pressure Diastolic blood pressure Provider Name and Address Organization Details Last Updated DateTime 4 165.1 cm 27.2 kg/m2 28166.3 5 g 84 /min 98 [degF] 96 % 96 % 130 mm[Hg] 84 mm[Hg] JEANIE Jordan [facility] 4 10:05:05 Social History Question Answer Notes LastModified by Home Inns ion Details LastModified Time 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 Mental Status None recorded. Family History Nothing Reported Notes:Mother 84 living CVA, HTN, DM, Atrial Fibrillation, [place] Rectum Father 31 from MVA as a passenger One brother with bladder cancer, DM and HTN Two sisters one living with hormonal issues the other in good health. Medical History Condition Response BLINDNESS N NERVE DISEASE N RHEUMATIC FEVER N BLADDER PROBLEMS N KIDNEY STONES N MRSA N OTHER # 1 N POLIO N LUNG DISEASE/DISORDER N HISTORY OF DRUG ABUSE N RADIATION / CHEMOTHERAPY N COPD N Other # 2 N BLOOD DISEASES N EAR OR HEARING PROBLEMS N MUMPS N SHINGLES N BOWEL PROBLEMS N DEPRESSION (INCLUDING POST ) N FAILED BACK SYNDROME N STROKE/TIA N ULCERS N BENIGN PROSTATIC HYPERPLASIA N MEASLES N HYPOTENSION N MYOCARDIAL INFARCTION N OBESITY N GERD/NAUSEA N ANEURYSM N URINARY/BLADDER/KIDNEY PROBLEMS N CORONARY ARTERY DISEASE (CAD) N Do you have Advance directive? N ADDICTION CONCERNS N ENDOMETRIOSIS N Impotence N USE OF BLOOD THINNERS N SKIN PROBLEMS N GASTROINTESTINAL DISORDER N PERIPHERAL VASCULAR DISEASE N MUSCLE,JOINT OR BONE PROBLEMS N GASTROINTESTINAL BLEEDING N BLOOD CLOTS N ASTHMA N Abdominal Pain N CATARACTS N ARTERIAL INSUFFICIENCY N ERECTILE DYSFUNCTION N VARICOSITIES N GI PROBLEMS N Low Testosterone N INFERTILITY N AIDS/HIV N CHEMOTHERAPY / RADIATION N LIVER DISEASE N MALE HYPOGONADISM N HYPERTENSION N Deficiency N TOURETTE'S N ANXIETY DISORDER N BLOOD TRANSFUSION N ANEMIA/BLOOD DISORDER N CHRONIC EAR INFECTIONS N TUBERCULOSIS N GLAUCOMA N FOOT PROBLEM N DIVERTICULITIS N CHICKENPOX N SLEEP APNEA N BACK INJECTIONS N ALLERGIES/HAYFEVER N INFECTIOUS DISEASE N HEART ARRHYTHMIA N PROSTATE N ESRD N INSOMNIA N HIGH CHOLESTEROL / HYPERLIPIDEMIA Y HYPERTHYROIDISM N EYE PROBLEMS N PVD N EDEMA N CHRONIC PAIN SYNDROME N HYPOTHYROIDISM N CONSTIPATION N CAROTID BLOCKAGE N BACK / NECK PROBLEMS N HAVE YOU BEEN HOSPITALIZED OR SEEN IN [facility] ER IN THE PAST YEAR ? N ATHEROSCLEROSIS N BREAST PROBLEMS N DIALYSIS N POLYCYSTIC OVARIES N ECZEMA N OSTEOPOROSIS N ARTHRITIS N NO SIGNIFICANT PAST MEDICAL HISTORY N APPENDICITIS N DIABETES, TYPE N BAD TEETH N VON WILLIBRAND'S DISEASE N ENT N HEARTBURN / REFLUX N GI N AUTISM SPECTRUM DISORDER (ASD) N POST LAMINECTOMY SYNDROME N HEPATITIS / LIVER DISEASE N GOUT N SLEEP DISORDER N ALZHEIMER'S DISEASE N Brain Problems N HERPES N DEMENTIA N HEADACHES/MIGRAINES N SEIZURES/EPILEPSY N VASCULAR DISEASE N PACEMAKER N DIZZINESS N HEART DISEASE/HEART PROBLEMS N KIDNEY DISEASE N MULTIPLE SCLEROSIS N NEUROPSYCHOLOGICAL N CARDIAC ARRHYTHMIA N CANCER: SPECIFY N ATRIAL FIBRILLATION N Gall Stones N PULMONARY EMBOLISM N AUTOIMMUNE DISEASE N Gynecological HistoryNo gynecological history recorded. Obstetrics History GPAL:G 0 P 0 0 0 0 Immunizations Vaccine Type Date Status Note Provider [facility] e and Address Organization Details Recorded Time influenza, unspecified formulation 08/06/2024 completed ОЛЕГ May - [place]nie [place] [employer] [facility] 09/18/2024 18:09:13 Past Encounters Encounter ID Performer Location Encounter Start Date Encounter Closed Date Diagnosis/Indication Diagnosis SNOMED-CT Code Diagnosis ICD10 Code [facility] [id number] [facility] [address] [address] 07/11/2022 00:00:00 07/11/2022 10:40:[id number] [facility] Internal Med [address] [address] 07/20/2023 11:41:43 07/20/2023 12:39:59 Adult health examination 360983132 Z00.00 Depression screening 171 223974 Z13.31 Hypercholesterolemia 136 06458 E78.00 Vitamin D deficiency 347 60152 E55.9 [id number] Doc Wilde MD [facility] [address], [facility] [place] [address] 05/19/2024 09:59:06 05/19/2024 10:31:47 Cough 77236032 R05.9 Health Concerns Section Related Observation LastModified by Organization Detai ls LastModified Time None Recorded Concern Status LastModified by Organization Details LastModified Time None Recorded Advance Directives Directive None Recorded Payers Encounter Date Sequence Insurance Name Policy Number Policy Ortez Covered Member ID Ortez Member ID Guarantor Name 07/20/2023 1 [employer] (POS) [id number] Sallie Christine [id number] Sallie Christine 05/19/2024 1 [employer] (POS) [id number] Sallie Christine [id number] Sallie Christine Notes Date Note Type Note Provider Name and Address Organization Details Recorded Time 3 text/html Patient Name: Sallie ChristineDate Of Service: Sunday ( 07.20.2023 ): 1960 Age: 62 There has been approximately a 10 lb weight loss since 07/11/2022. This represents approximately a 6.1% change in weight. Weight change attributable to lifestyle changes. Vital Signs:Blood Pressure: Sitting Rt. Arm 122/88Pulse: Sitting 64 /min and RegularRespirations: 12Height 65 in or 1.7 mWeight 154 lb or 69.9 kgBMI 25.6Temperature: 97 F or 36.1 CPulse Oximetry: 97 % at rest on no oxygen Chief Complaint: Addressed in HPI Problems or conditions discussed in the HPI were the only ones reviewed during the encounter.Only social and family history addressed in the HPI were reviewed during this encounter. Attendant(s): NoneConstitutional and Systemic Symptoms: none Medication Reconciliation: from medication list. History of Present Illness #1. Type II Hypercholesterolaemia: Currently not taking medication. No interval complaints of any muscle pain or arthralgia. No significant liver changes with medications. Last lipid panel: fair control. Therapy reviewed regarding treatment of cholesterol management and include diet. #2. Hx of Vitamin D deficiency. Has been on vitamin D Supplements. Has had no repeat values No other signs or symptoms of any osteoporotic or osteopenia fractures.Medication List Reviewed and Reconciled 07/20/2023ravachol 40 MG (TABLET - ORAL) One DailyVitamin D 50,000 IU (CAPSULE - ORAL) WeeklyLodine 400 MG (TABLET - ORAL) Twice A DayZovirax 400 MG (TABLET - ORAL) As DirectedActonel 150 MG (TABLET - ORAL) MonthlyProbiotic Three Times A WeekADRs List Reviewed 07/20/2023Hymenoptra Stings SwellingVaccination and Ragtvawgdcom0301-15 Lzsmzgzb3887-27 Ieefgecrm5738-26Zkwdybnp HistoryRight Wrist, Ganglion Right Wrist, Cyst Left EarPreventative Testing Confirmed by Our Dxbomoi9112/01/2022 MAMMOGRAM DEXA SCAN08/08/2022 ALBUMIN 4.6 G/DLSocial HistoryDoes not smoke or drinkWorks as a school counselorFamily HistoryMother 84 living CVA, HTN, DM, Atrial Fibrillation, [place] RectumFather 31 from MVA as a passengerOne brother with bladder cancer, DM and HTNTwo sisters one living with hormonal issues the other in good health. Doc Wilde MD [address] [facility] [address] [facility], [facility] [address], [place], [address], [facility] [employer] 07/20/2023 12:01:41 4 text/html Patient Name: Sallie Dick Of Service: Sunday ( 05.19.2024 ): 1960 Age: 63 There has been approximately a 9.5 lb weight gain since 07/20/2023. This represents approximately a 6.2% change in weight. Weight change attributable to lifestyle changes. Vital Signs:Blood Pressure: Sitting Rt. Arm 130/84Pulse: Sitting 84 /min and RegularRespiratory Rate: 12Height 65 in or 1.7 mWeight 163.5 lb or 74.2 kgBMI 27.2Temperature: 980 F or 526.7 CPulse Oximetry: 96 % at rest on no oxygen Chief Complaint: Addressed in HPI Problems or conditions discussed in the HPI were the only ones reviewed during the encounter.Only social and family history addressed in the HPI were reviewed during this encounter. Attendant(s): NoneConstitutional and Systemic Symptoms:none Medication Reconciliation: from medication list. History of Present Illness #1. Cough nonproductive duration approximately two months. Had a respiratory infection at that time was treated with antibiotics on two different occasions with marginal improvement. Still having a persistent cough with some occasional end expiratory wheezing and mild shortness of breath as well as exertional fatigue. Denies any fever, chills, orthopnea, PND or any other other cardiopulmonary symptomatology. Significant other has COVID at this time and doing reasonably well. No other exposures any other infectious etiologies.: Active Medication ListPravachol 40 MG (TABLET - ORAL) One DailyVitamin D 50,000 IU (CAPSULE - ORAL) WeeklyLodine 400 MG (TABLET - ORAL) Twice A DayZovirax 400 MG (TABLET - ORAL) As DirectedProbiotic Three Times A Week Adverse Drug Reactions ReviewedHymenoptra Stings Swelling Vaccination and Zoazrstsjvon0078-64 Irpjqukq2770-14 Influenza Surgical Kfwmnvq4358-55 Right Lmgxr7036-04 Ganglion Right Khbmi1995-62 Cyst Left Ear Preventative Xcmzxkm1910/25/2023 COLONOSCOPY ( 5 YEARS ) 810/12/2022 ALBUMIN 4.3 G/DL N012/01/2022 MAMMOGRAM /12/2022 DEXA SCAN Social HistoryDoes not smoke or drinkWorks as a school counselor Family HistoryMother 85 living CVA, HTN, DM, Atrial Fibrillation, [place] RectumFather 31 from MVA as a passengerOne brother with bladder cancer, DM and HTNTwo sisters one living with hormonal issues the other in good health. Doc Wilde MD [address] [facility], [facility] [address], [place], [address], [facility] [email or web address] 05/19/2024 10:19:58 OBGyn Episode No OBEpisode recorded.
--- OUTSIDE RECORDS SUMMARY | 2025-01-07 13:41 | XMS_ITS | Referral Summary ---
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 Gender Identity Not on file Sexual Orientation Not on file Last Filed Vital Signs Vital Sign Reading [...] 02/16/2022 8:47 AM CDT Plan of Treatment Not on file Medical Devices Implanted Type Area Parimutuel Cashier Device Identifier Shelf Expiration Date Model / Serial / Lot [employer] 3 Hole Anatomic Graft Window Radius Right Wrist Volar Narrow [id number] - [id number] Implanted:Qty: 1 on 02/16/2022 by Mohamud Tapia MD at [facility] Right: Wrist [employer] AR-8916VNR- 03 / / [employer] [id number] Screw Kreulock Compression Titanium 2.4x18mm - [id number] Implanted:Qty: 2 on 02/16/2022 by Mohamud Tapia MD at [facility] Right: Wrist [employer] AR-8724VCL- 18 / / [employer] [id number] Screw Kreulock Compression Titanium 2.4x16mm - [id number] Implanted:Qty: 1 on 02/16/2022 by Mohamud Tapia MD at [facility] Right: Wrist [employer] AR-8724VCL- 16 / / [employer] [id number] Screw Kreulock Compression Titanium 3.5x14mm - [id number] Implanted:Qty: 1 on 02/16/2022 by Mohamud Tapia MD at [facility] Right: Wrist [employer] AR-8935CL-1 4 / / [employer] Screw Kreulock Compression Titanium 3.5x14mm [id number] - [id number] Implanted:Qty: 1 on 02/16/2022 at [facility] Right: Wrist [employer] AR-8935CL-1 0 / / [employer] Low Profile Screws 3.5mm 14mm Self Drill Solid Midfoot Cortical T Ar-8935-14 - [id number] Implanted:Qty: 1 on 02/16/2022 by Mohamud Tapia MD at [facility] Right: Wrist [employer] AR-8935-14 / / Explanted Type Area Parimutuel Cashier Device Identifier Shelf Expiration Date Model / Serial / Lot [employer] [id number] Screw Kreulock Compression Titanium 3.5x16mm - [id number] Explanted:Qty: 1 on 02/16/2022 at [facility] Right: Wrist [employer] AR-8935CL-1 6 / / [employer] Screw Kreulock Compression Titanium 3.5x14mm [id number] - [id number] Explanted:Qty: 1 on 02/16/2022 at [facility] Right: Wrist [employer] AR-8935CL-1 0 / / [employer] Low Profile Screws 3.5mm 12mm Self Drill Solid Midfoot Cortical T Ar-8935-12 - [id number] Explanted:Qty: 1 on 02/16/2022 at [facility] Right: Wrist [employer] AR-8935-12 / / Insurance [facility] HMO/PPO Address: [id number] [place] [id number] AET COVENTRY HMO/POS [employer] COVENTRY HMO/POS Care Teams Lunchroom Aide Relationship Specialty Start Date End Date Doc Wilde MD [address] [facility] [address] [place] [address] PCP - General Internal Medicine 02/16/22
--- OUTSIDE RECORDS SUMMARY | 2025-01-07 13:41 | XMS_ITS | Continuity of Care Document ---
Author Organization [facility] Address [address] [place] [address] Phone Care Team Providers Care Flow Specialist Name Role Phone Conversion MD, Doctor Unavailable Unavailabl e Allergies, Adverse Reactions, Alerts Substance Reaction Status Criticality No Known Drug Allergies Other Active No I nformation Medications Medication Instructions Dosage Effective Dates (start - stop) Status Comments ZOVIRAX 5% APPLICS 1 Q 4HR - Active ACYCLOVIR 400MG TABS 1 TID - Activ e FLUTICASONE PROPIONATE 50MCG S 2 QD-daily - Active FEXOFENADINE HCL 180MG TABS 1 QD-daily - Active Advance Directives Directive Yes / No Effective Date File Name No Information Encounters Encounter Description Practice Location Reason(s) For Visit Diagnoses Date Provider Providers Copied on Encounter [facility], [address], [place], [place], [id number] , tel: [phone] Conversion Department No Information 8[address] 1 Conversion Doctor. [facility] [place], [address], . [facility], [address], [place], [place], [address] , tel: [phone] [facility] HERPES SIMPLEX NOSROUTINE MEDICAL EXAMVACCINATION FOR DTP-DTAPALLERGY, UNSPECIFIED 1-200 [address] Tobias Dorantes. [address], [address], [place], [place], [address]. 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 [place], [place], [address]. tel:[phone] Family History Family Member Type Diagnosis Age At Onset No Information Immunizations Vaccine Date Status Comments 39028 - Tetanus_Diptheria_Pertussis_Tdap administered Source: Source Unspecified Payers Payer name Insurance type Covered constitution party ID Authoriza tion(s) No Information Social History Type Description Quantity Date Captured Comments Sex Female Smoking Status No Information Chief Complaint And Reason For Visit No Information Reason For Referral Reason For Referral No Information History Of Present Illness Encounter Date Complaint History Of Prese nt Illness No Information Functional Status Date Functional Assessmen t No Information Instructions Date Instruction Additional Infor mation No Information Assessments Type Assessment Date No Information Patient Care Teams Name Effective Dates (start - stop) Status Members No Information
== END 2025-01-07 12:11 | disposition home or self-care (01) ==
LOC: ANHIMG 12:12
PROVIDERS: PCP Internal Medicine; Visit Provider Obstetrics & Gynecology Gynecology
DX: M85.89 Other specified disorders of bone density and structure, multiple sites (principal); Z78.0 Asymptomatic menopausal state
CPT/HCPCS: 77080

== ENCOUNTER 2025-04-08 12:40 | Outpatient (CLI) | payer MEDICARE, SELFPAY ==
--- NOTE | ~2025-04-08 | MM_ITS ---
EXAMINATION: MM screening [facility] BI w juan carlos HISTORY: Screening TECHNIQUE: Craniocaudal and mediolateral oblique 3-D tomosynthesis images were obtained and synthetic 2-D images were generated. CAD analysis was submitted and interpreted. COMPARISON: Comparison to multiple prior studies sequentially, with oldest reviewed study dated 11/18/2019. BREAST PARENCHYMAL COMPOSITION: Not dense: There are scattered areas of fibroglandular density. FINDINGS: Benign-appearing mass in the lower outer quadrant of the right breast has diminished in siz e compared with prior studies. There is no evidence of suspicious mass, calcification, or architectur al distortion to suggest malignancy in either breast. There has been no suspicious interval change. IMPRESSION: 1. No mammographic evidence of malignancy. 2. Recommend routine screening mammography in one year. BI-RADS CATEGORY 2 - BENIGN FINDINGS Reviewed, dictated and finalized at location B.
== END 2025-04-08 12:41 | disposition home or self-care (01) ==
LOC: MICIMG 12:41
PROVIDERS: PCP Internal Medicine; Visit Provider Obstetrics & Gynecology Gynecology
DX: Z12.31 Encounter for screening mammogram for malignant neoplasm of breast (principal)
CPT/HCPCS: 77063; 77067